=== PATIENT | female | born 1980 | race Caucasian/White ===

== ENCOUNTER 2024-10-10 17:51 | Emergency (ER) | payer OTHER, SELFPAY ==
[2024-10-10 17:53] VITALS: BP 159/104; PULSE 84; TEMP 36.7; O2SAT 99; BMI 36.0
--- NOTE | 2024-10-10 20:10 | ED.NAVMDI1 ---
HPI - Nausea/Vomiting/Diarrhea General Chief complaint: Nausea/Vomiting/Diarrhea Stated complaint: nausea vomiting Time Seen by Provider: 10/10/24 20:09 Source: patient Mode of arrival: walk-in History of Present Illness HPI Narrative: 44 year old female presents to the ED for N/V. Onset was 2 days ago. She developed a headache today. Reports chills. Denies dizziness, fever, sore throat, cough. Denies abd pain, diarrhea, urinary symptoms. Denies known ill contacts. Related Data Previous Rx's ?Medication ?Instructions ?Recorded ondansetron 4 mg disintegrating 4 mg PO Q8H PRN nausea and 10/10/24 tablet vomiting #14 tabs Allergies Allergy/AdvReac Type Severity Reaction Status Date / Time No Known Drug Allergies Allergy Verified 10/10/24 17:57 Review of Systems ROS Constitutional Reports: chills and fatigue; Denies: fever Ears, nose, mouth, and throat Denies: throat pain or neck pain Cardiovascular Denies: chest pain Respiratory Denies: shortness of breath or cough Gastrointestinal Reports: nausea and vomiting; Denies: abdominal pain or diarrhea Genitourinary Denies: painful urination, urinary frequency, urinary urgency or blood in urine Musculoskeletal Denies: back pain or neck pain Integumentary/Breast Denies: rash Neurological Reports: headache; Denies: numbness in extremities, weakness in extremities, lack of coordination or dizziness PFSH PFSH Social History Little interest or pleasure in doing things: not at all Feeling down, depressed, or hopeless: not at all Exam Constitutional Vital Signs, click to edit/add: Last Vital Signs Temp 98.0 F 10/10/24 17:53 Pulse 84 10/10/24 17:53 Resp 18 10/10/24 17:53 BP 159/104 H 10/10/24 17:53 Pulse Ox 99 10/10/24 17:53 O2 Del Method Room Air 10/10/24 17:53 Common normals: no apparent distress and oriented x3 General appearance: cooperative HENMT Common normals: external ears normal and moist oral mucous membranes Eye Common normals: conjunctivae normal and no scleral icterus Respiratory Common normals: normal respiratory effort and clear to auscultation bilaterally Effort & inspection: able to speak in complete sentences and symmetric chest movement Cardio Common normals: regular rate and regular rhythm GI Common normals: Normal to inspection, nondistended, normoactive bowel sounds present, soft to palpation and non-tender Neuro Common normals: oriented x3, CN's II-XII intact bilaterally, moves all extremities and no focal motor deficits Sensorium/orientation: awake and alert Speech: speech normal Course Vital Signs Vital signs: Vital Signs Temperature 98.0 F 10/10/24 17:53 Pulse Rate 84 10/10/24 17:53 Respiratory Rate 18 10/10/24 17:53 Blood Pressure 159/104 H 10/10/24 17:53 Pulse Oximetry 99 10/10/24 17:53 Oxygen Delivery Method Room Air 10/10/24 17:53 Temperature 98.0 F 10/10/24 17:53 Pulse Rate 84 10/10/24 17:53 Respiratory Rate 18 10/10/24 17:53 Blood Pressure 159/104 H 10/10/24 17:53 Pulse Oximetry 99 10/10/24 17:53 Oxygen Delivery Method Room Air 10/10/24 17:53 MDM - Nausea/Vomiting/Diarrhea MDM Narrative Medical decision making narrative: Urinalysis showed >80 ketones. She was given 2L NS here in the ED. She was given IV Zofran and Pepcid. She reported improvement after these medications, but reported mild nausea and RODRIGUEZ remained. She was given IV Reglan, Benadryl and Decadron. The plan was discharge home. A prescription was provided for Zofran ODT. Care was resumed to Dr. Trevino at the end of my shift. See her dictation for further evaluation and treatment. Differential Diagnosis Differential diagnosis: Likely food poisoning, gastroenteritis, dehydration and other (nausea, vomiting; viral illness) Medical Records Attestation: I reviewed the patient's medical records. Lab Data Attestation: I reviewed the patient's lab results. Labs: Lab Results 10/10/24 10/10/24 10/10/24 Range/Units 19:45 20:30 20:55 WBC 15.1 H (4.0-11.0) 10^3/uL RBC 5.24 (4.20-5.40) 10^6/uL Hgb 15.4 (12.0-16.0) g/dL Hct 45.4 (36.0-48.0) % MCV 86.6 (81.0-99.0) fL MCH 29.4 (26.7-34.0) pg MCHC 33.9 (29.9-35.2) g/dL RDW 12.1 (11.0-15.0) % Plt Count 365 (150-450) 10^3/uL MPV 10.6 (9.5-13.5) fL Neut % (Auto) 91.1 H (43.0-75.0) % Lymph % (Auto) 6.6 L (20.5-60.0) % [place] % (Auto) 1.5 L (1.7-12.0) % Eos % (Auto) 0.0 L (0.9-7.0) % Baso % (Auto) 0.3 (0.2-2.0) % Neut # (Auto) 13.8 H (1.4-6.5) 10^3/uL Lymph # (Auto) 1.0 L (1.2-3.8) 10^3/uL [place] # (Auto) 0.2 L (0.3-0.8) 10^3/uL Eos # (Auto) 0.0 (0.0-0.7) 10^3/uL Baso # (Auto) 0.0 (0.0-0.1) 10^3/uL Abs Immat Gran (auto) 0.08 H (0.00-0.03) 10^3/uL Imm/Tot Granulo (auto) 0.5 (0.0-0.5) % Sodium 141 (136-145) mmol/L Potassium 4.2 (3.5-5.1) mmol/L Chloride 102 (98-107) mmol/L Carbon Dioxide 27.4 (21.0-32.0) mmol/L Anion Gap 15.8 BUN 15.0 (7.0-18.0) mg/dL Creatinine 0.82 (0.55-1.02) mg/dL Est GFR ( Amer) >60 (>=60 mL/min/1.73m^2) Est GFR (Non-Af Amer) >60 (>=60 mL/min/1.73m^2) BUN/Creatinine Ratio 18.3 Glucose 126 H (74-106) mg/dL Calcium 9.4 (8.5-10.1) mg/dL Total Bilirubin 0.6 (0.2-1.0) mg/dL AST 15 (15-37) U/L ALT 20 (14-59) U/L Alkaline Phosphatase 73 (46-116) U/L Total Protein 7.8 (6.4-8.2) g/dL Albumin 3.6 (3.4-5.0) g/dL Globulin 4.2 g/dL Albumin/Globulin Ratio 0.9 Lipase 33.0 (16.0-77.0) U/L Urine Color Yellow (YELLOW) Urine Clarity Cloudy A (CLEAR) Urine pH 6.0 (5.0-9.0) Ur Specific [place] >=1.030 A (1.005-1.025) Urine Protein 100 A (NEG/TRACE) mg/dL Urine Glucose (UA) Negative (NEGATIVE) mg/dL Urine Ketones >=80 A (NEGATIVE) mg/dL Urine Occult Blood Small A (NEGATIVE) Urine Nitrite Negative (NEGATIVE) Urine Bilirubin Negative (NEGATIVE) Urine Urobilinogen 1.0 (0.2-1.0) EU/dL Ur Leukocyte Esterase Negative (NEGATIVE) Urine RBC 2-5 A (0-2) #/HPF Urine WBC 0-2 A (NONE SEEN) #/HPF Ur Squamous Epith Cells Rare (NONE/RARE) #/LPF Urine Crystals None seen (None Seen) #/HPF Amorphous Sediment Many Urine Bacteria Moderate A (NONE SEEN) #/HPF Urine Casts None seen (NONE SEEN) #/LPF Urine Mucus None seen (NONE SEEN) Ur Culture Indicated? Yes-[facility] [place] Discharge Plan Discharge Chief Complaint: Nausea/Vomiting/Diarrhea Clinical Impression: Nausea and vomiting, Headache, Dehydration Patient Disposition: Home, Self-Care Condition: Good Mode of Transportation: Private Vehicle Prescriptions / Home Meds: New ondansetron 4 mg tablet,disintegrating 4 mg PO Q8H PRN (Reason: nausea and vomiting) Qty: 14 0RF Print Language: Turkish Instructions: Dehydration (ED), Acute Headache (ED), Acute Nausea and Vomiting (ED) Additional Instructions: Return to the ER for worsening symptoms. Referrals: PETRA KEBEDE [Primary Care Provider, Family Practice] - 1 week
[2024-10-10 20:19] LABS: Bilirubin Urine NEGATIVE (NEGATIVE); Blood Urine SMALL (NEGATIVE); Clarity Urine CLOUDY (CLEAR); Color Urine YELLOW (YELLOW); Glucose Urine UA NEGATIVE (NEGATIVE); Ketones Urine >=80 mg/dL (NEGATIVE); Leukocyte Esterase Urine NEGATIVE (NEGATIVE); Nitrite Urine NEGATIVE (NEGATIVE); Protein Urine 100 mg/dL (NEG/TRACE); Specific Gravity Urine >=1.030 (1.005-1.025); Urine Microscopic Indicated YES
[2024-10-10 20:22] LABS: Bacteria Urine MODERATE #/HPF (NONE SEEN); WBC Urine 0-2 #/HPF (NONE SEEN)
[2024-10-10 20:23] LABS: Amorphous Sediment Urine MANY; Cast Seen? NONE SEEN #/LPF (NONE SEEN); Crystals Seen? None Seen #/HPF (None Seen); Mucus Urine NONE SEEN (NONE SEEN); Squamous Epithelial Cell Urine RARE #/LPF (NONE/RARE); Urine Culture Indicated YES-FRMC
[2024-10-10] MEDS: ONDANSETRON PF 4 MG/2 ML VIAL IV (20:37)
[2024-10-10] MEDS: FAMOTIDINE/PF 20 MG/2 ML VIAL IV (20:37)
[2024-10-10] MEDS: 0.9 % SODIUM CHLORIDE 1,000 ML 1000 ML IV ×2 (20:37→22:30)
[2024-10-10 20:49] LABS: Alanine Aminotransferase 20 U/L (14-59); Albumin Globulin Ratio 0.9; Albumin Level 3.6 g/dL (3.4-5.0); Alkaline Phosphatase 73 U/L (46-116); Anion Gap 15.8; Aspartate Amino Transferase 15 U/L (15-37); BUN Creatinine Ratio 18.3; Bilirubin Total 0.6 mg/dL (0.2-1.0); Calcium 9.4 mg/dL (8.5-10.1); Carbon Dioxide 27.4 mmol/L (21.0-32.0); Chloride 102 mmol/L (98-107); Estimated GFR (African America >60 (>=60 mL/min/1.73m^2); Estimated GFR (Non-African Ame >60 (>=60 mL/min/1.73m^2); Globulin 4.2 g/dL; Glucose 126 mg/dL (74-106); Potassium 4.2 mmol/L (3.5-5.1); Sodium 141 mmol/L (136-145); Total Protein 7.8 g/dL (6.4-8.2)
[2024-10-10 20:59] LABS: Basophils Percent Auto 0.3 % (0.2-2.0); Hematocrit 45.4 % (36.0-48.0); Hemoglobin 15.4 g/dL (12.0-16.0); Immature Granulocytes Abs Auto 0.08 10^3/uL (0.00-0.03); Immature Granulocytes Pct Auto 0.5 % (0.0-0.5); Lymphocytes Percent Auto 6.6 % (20.5-60.0); Mean Corpuscular HGB Conc 33.9 g/dL (29.9-35.2); Mean Corpuscular Hemoglobin 29.4 pg (26.7-34.0); Mean Corpuscular Volume 86.6 fL (81.0-99.0); Mean Platelet Volume 10.6 fL (9.5-13.5); Monocytes Absolute Auto 0.2 10^3/uL (0.3-0.8); Monocytes Percent Auto 1.5 % (1.7-12.0); Neutrophils Absolute Auto 13.8 10^3/uL (1.4-6.5); Neutrophils Percent Auto 91.1 % (43.0-75.0); Platelet Count 365 10^3/uL (150-450); Red Blood Count 5.24 10^6/uL (4.20-5.40); Red Cell Distribution Width 12.1 % (11.0-15.0); White Blood Count 15.1 10^3/uL (4.0-11.0)
[2024-10-10] MEDS: DEXAMETHASONE SOD PHOS 10 MG/ML VIAL IV (21:57)
[2024-10-10] MEDS: DIPHENHYDRAMINE HCL 50 MG/ML VIAL 25 MG IVP (21:57)
[2024-10-10] MEDS: METOCLOPRAMIDE HCL 10 MG/2 ML VIAL IVP (21:58)
--- NOTE | 2024-10-10 23:45 | ED_ITS ---
HPI HPI - General Adult General Chief complaint: Nausea/Vomiting/Diarrhea Stated complaint: nausea vomiting Time Seen by Provider: 10/10/24 20:09 Source: patient Mode of arrival: walk-in History of Present Illness HPI narrative: The patient is a 44-year-old female whom I assumed care for at 9 PM when our physician family law legal assistant had concluded her shift. The patient has had 2 to 3 days of vomiting. There is no associated diarrhea or abdominal pain. Patient had been vomiting so much she developed a headache. On her examination everything was unremarkable but they did discover that the patient had 80+ ketones in the urine. After of 2 L of fluid and a headache cocktail the patient's symptoms completely went away. I personally went in and reassessed the patient at 2346 and the patient appears well. She is nontoxic, no acute distress, speaks in full sentences. She has good skin turgor. Her headache is gone. The patient feels comfortable going home. I am going to call her in a prescription for Zofran should her symptoms return. She should look for additional symptoms such as fever diarrhea or abdominal pain. If those should occur the patient should return to the ER soon as possible for further evaluation and treatment. Otherwise the patient can follow-up with her primary care physician within the next week. Diagnosis: Vomiting Headache Dehydration Related Data Previous Rx's ?Medication ?Instructions ?Recorded ondansetron 4 mg disintegrating 4 mg PO Q8H PRN nausea and 10/10/24 tablet vomiting #14 tabs Allergies Allergy/AdvReac Type Severity Reaction Status Date / Time No Known Drug Allergies Allergy Verified 10/10/24 17:57 PFSH PFSH Social History Little interest or pleasure in doing things: not at all Feeling down, depressed, or hopeless: not at all Exam Constitutional Vital Signs, click to edit/add: Last Vital Signs Temp 98.0 F 10/10/24 17:53 Pulse 84 10/10/24 17:53 Resp 18 10/10/24 17:53 BP 159/104 H 10/10/24 17:53 Pulse Ox 99 10/10/24 17:53 O2 Del Method Room Air 10/10/24 17:53 Course Vital Signs Vital signs: Vital Signs Temperature 98.0 F 10/10/24 17:53 Pulse Rate 84 10/10/24 17:53 Respiratory Rate 18 10/10/24 17:53 Blood Pressure 159/104 H 10/10/24 17:53 Pulse Oximetry 99 10/10/24 17:53 Oxygen Delivery Method Room Air 10/10/24 17:53 Temperature 98.0 F 10/10/24 17:53 Pulse Rate 84 10/10/24 17:53 Respiratory Rate 18 10/10/24 17:53 Blood Pressure 159/104 H 10/10/24 17:53 Pulse Oximetry 99 10/10/24 17:53 Oxygen Delivery Method Room Air 10/10/24 17:53 Medical Decision Making Lab Data Labs: Lab Results 10/10/24 10/10/24 10/10/24 Range/Units 19:45 20:30 20:55 WBC 15.1 H (4.0-11.0) 10^3/uL RBC 5.24 (4.20-5.40) 10^6/uL Hgb 15.4 (12.0-16.0) g/dL Hct 45.4 (36.0-48.0) % MCV 86.6 (81.0-99.0) fL MCH 29.4 (26.7-34.0) pg MCHC 33.9 (29.9-35.2) g/dL RDW 12.1 (11.0-15.0) % Plt Count 365 (150-450) 10^3/uL MPV 10.6 (9.5-13.5) fL Neut % (Auto) 91.1 H (43.0-75.0) % Lymph % (Auto) 6.6 L (20.5-60.0) % [place] % (Auto) 1.5 L (1.7-12.0) % Eos % (Auto) 0.0 L (0.9-7.0) % Baso % (Auto) 0.3 (0.2-2.0) % Neut # (Auto) 13.8 H (1.4-6.5) 10^3/uL Lymph # (Auto) 1.0 L (1.2-3.8) 10^3/uL [place] # (Auto) 0.2 L (0.3-0.8) 10^3/uL Eos # (Auto) 0.0 (0.0-0.7) 10^3/uL Baso # (Auto) 0.0 (0.0-0.1) 10^3/uL Abs Immat Gran (auto) 0.08 H (0.00-0.03) 10^3/uL Imm/Tot Granulo (auto) 0.5 (0.0-0.5) % Sodium 141 (136-145) mmol/L Potassium 4.2 (3.5-5.1) mmol/L Chloride 102 (98-107) mmol/L Carbon Dioxide 27.4 (21.0-32.0) mmol/L Anion Gap 15.8 BUN 15.0 (7.0-18.0) mg/dL Creatinine 0.82 (0.55-1.02) mg/dL Est GFR ( Amer) >60 (>=60 mL/min/1.73m^2) Est GFR (Non-Af Amer) >60 (>=60 mL/min/1.73m^2) BUN/Creatinine Ratio 18.3 Glucose 126 H (74-106) mg/dL Calcium 9.4 (8.5-10.1) mg/dL Total Bilirubin 0.6 (0.2-1.0) mg/dL AST 15 (15-37) U/L ALT 20 (14-59) U/L Alkaline Phosphatase 73 (46-116) U/L Total Protein 7.8 (6.4-8.2) g/dL Albumin 3.6 (3.4-5.0) g/dL Globulin 4.2 g/dL Albumin/Globulin Ratio 0.9 Lipase 33.0 (16.0-77.0) U/L Urine Color Yellow (YELLOW) Urine Clarity Cloudy A (CLEAR) Urine pH 6.0 (5.0-9.0) Ur Specific [place] >=1.030 A (1.005-1.025) Urine Protein 100 A (NEG/TRACE) mg/dL Urine Glucose (UA) Negative (NEGATIVE) mg/dL Urine Ketones >=80 A (NEGATIVE) mg/dL Urine Occult Blood Small A (NEGATIVE) Urine Nitrite Negative (NEGATIVE) Urine Bilirubin Negative (NEGATIVE) Urine Urobilinogen 1.0 (0.2-1.0) EU/dL Ur Leukocyte Esterase Negative (NEGATIVE) Urine RBC 2-5 A (0-2) #/HPF Urine WBC 0-2 A (NONE SEEN) #/HPF Ur Squamous Epith Cells Rare (NONE/RARE) #/LPF Urine Crystals None seen (None Seen) #/HPF Amorphous Sediment Many Urine Bacteria Moderate A (NONE SEEN) #/HPF Urine Casts None seen (NONE SEEN) #/LPF Urine Mucus None seen (NONE SEEN) Ur Culture Indicated? Yes-[facility] [email or web address] Discharge Plan Discharge Chief Complaint: Nausea/Vomiting/Diarrhea Clinical Impression: Nausea and vomiting, Headache, Dehydration Patient Disposition: Home, Self-Care Condition: Good Mode of Transportation: Private Vehicle Prescriptions / Home Meds: New ondansetron 4 mg tablet,disintegrating 4 mg PO Q8H PRN (Reason: nausea and vomiting) Qty: 14 0RF Print Language: Dominican Instructions: Dehydration (ED), Acute Headache (ED), Acute Nausea and Vomiting (ED) Additional Instructions: Return to the ER for worsening symptoms. Referrals: PETRA KEBEDE [Primary Care Provider, Family Practice] - 1 week
== END 2024-10-10 23:58 | disposition home or self-care (01) ==
PROVIDERS: Nurse Practitioner Family; Emergency Provider Emergency Medicine; PCP Family Medicine
DX: R11.2 Nausea with vomiting, unspecified (principal); R51.9 Headache, unspecified; E86.0 Dehydration
CPT/HCPCS: 36415; 80053; 81001; 83690; 85025; 87086; 96361; 96374; 96375; 99285; J1100; J1200; J2405; J2765; J3490